=== PATIENT | male | born 1945 | race Caucasian/White ===

== ENCOUNTER 2022-08-08 14:53 | Outpatient (CLI) | payer OTHER, SELFPAY ==
--- NOTE | 2022-08-08 15:15 | USCV_ITS ---
Frederick Mantilla Age: 77 Gender: M : 1945 Exam Date: 08/08/2022 16:00 Ordering Phys: Parish Alston DO Technologist: Faith Maxwell Exam Location: [facility] [place] [facility] [place] Indication: left bruit Risk Factors: None Previous Vascular Surgery: None Right Brachial BP: / Left Brachial BP: / Right Left Velocity (cm/s) Spectral Plaque Velocity (cm/s) Spectral Plaque Syst/Diast Broadening Syst/Diast Broadening 146.00/20.20 Prox CCA 102.50/ 15.40 76.20/ 13.10 Mid CCA 82.70 / 12.10 61.40/ 10.10 Misael Distal CCA 66.80 / 14.00 Misael 57.50/ 11.70 Prox ICA 46.50 / 11.60 Misael 53.60/ 17.10 Mid ICA 38.30 / 11.20 55.90/ 19.40 Distal ICA 59.20 / 17.30 133.60 ECA 76.10 0.39 ICA/CCA 0.58 Antegrade Vertebral Antegrade 44.30/ 14.00 cm/s 37.50/ 10.90 cm/s Tri Subclavian Tri 101.9 131.5 0 0 FINDINGS Mild to moderate plaques at the bifurcations and proximal internal carotid arteries bilaterally Intimal thickening in the common carotid arteries bilaterally Antegrade flow in the vertebral arteries bilaterally Normal Doppler flow velocities in the external carotid and subclavian arteries bilaterally CONCLUSIONS Mild to moderate plaques at the bifurcations and proximal internal carotid arteries bilaterally with Doppler features suggesting less than 50% stenosis. No significant stenosis in the external carotid, vertebral and subclavian arteries, based on the above findings Compared to the study from 07/25/2019, there seems to be more plaque buildup at the bifurcations bilaterally Dr Denis Joy MD [facility] (Electronically Signed) Final Date: 09 August 2022 08:47 S
--- NOTE | 2022-08-08 16:00 | USCV_ITS ---
Frederick Mantilla Age: 77 Gender: M : 1945 Exam Date: 08/08/2022 15:31 Ordering Phys: Parish Alston DO Technologist: Faith Maxwell Exam Location: [facility] – [place] Indication: murmur BP: 138 / 70 HR: 83 Rhythm: Sinus Technical Quality: Good MEASUREMENTS (Male / Female) Normal Values 2D ECHO LV Diastolic Diameter PLAX 3.4 cm 4.2 - 5.9 / 3.9 - 5.3 cm LV Systolic Diameter PLAX 0.8 cm IVS Diastolic Thickness 1.3 cm 0.6 - 1.0 / 0.6 - 0.9 cm IVS Systolic Thickness 1.9 cm LVPW Diastolic Thickness 1.3 cm 0.6 - 1.0 / 0.6 - 0.9 cm LVPW Systolic Thickness 2.2 cm LVOT Diameter 2.0 cm LV Ejection Fraction 2D Teich 97.2 % LV Ejection Fraction MOD 2C 73.9 % LV Ejection Fraction 2C AL 72.8 % LA Diameter 3.3 cm LA Width 4.1 cm LA Height 6.6 cm RA Width 5.1 cm RA Height 4.2 cm Aorta at Sinotubular Diameter 2.7 cm IVC Diameter 1.8 cm DOPPLER AV Peak Velocity 382.0 cm/s LVOT Peak Velocity 124.0 cm/s AV Area Cont Eq vti 1.2 cm squared AV Area Cont Eq pk 1.0 cm squared MV Peak Velocity 154.0 cm/s MV Area PHT 2.3 cm squared Mitral E to A Ratio 0.8 MV E' Velocity 63.0 cm/s Mitral E to MV E' Ratio 10.6 Mitral E to LV E' Lateral Ratio 9.6 Mitral E to LV E' Septal Ratio 11.9 TR Peak Velocity 258.0 cm/s TR Peak Gradient 26.6 mmHg Right Atrial Pressure 3.0 mmHg Pulmonary Artery Systolic Pressu 29.6 mmHg RV Acceleration Time 0.1 s RV Ejection Time 0.3 s RV AcT/ET 0.3 FINDINGS Left Ventricle Normal left ventricular size and systolic function, EF 70 %. No regional wall motion abnormalities. Grade I/IV diastolic dysfunction (abnormal relaxation filling pattern), normal to mildly elevated filling pressures. Mild left ventricular hypertrophy. Right Ventricle The right ventricle is normal in size and function. Right Atrium The right atrium is normal in size. Left Atrium Mildly increased left atrial size. Mitral Valve Moderate mitral annular calcification. Trace mitral valve regurgitation. Aortic Valve Moderate aortic valve calcification. Trace to mild aortic valve regurgitation. Moderate aortic valve stenosis, mean gradient 27 mmHg, TYLER 1.2 cm squared. Peak velocity of 3.82 m/s with a peak gradient of 58 mmHg Tricuspid Valve Mild tricuspid valve regurgitation. Estimated pulmonary artery peak systolic pressure 30 mmHg Pulmonic Valve Pulmonic valve not well visualized. Pericardium Normal pericardium without effusion. Aorta Normal ascending aorta dimension. IVC Normal inferior vena cava. CONCLUSIONS Normal left ventricular size and systolic function, EF 70 %. No regional wall motion abnormalities. Grade I/IV diastolic dysfunction (abnormal relaxation filling pattern), normal to mildly elevated filling pressures. Mild left ventricular hypertrophy. Moderate aortic valve stenosis, mean gradient 27 mmHg, TYLER 1.2 cm squared. Peak velocity of 3.82 m/s with a peak gradient of 58 mmHg. Mild tricuspid valve regurgitation. Estimated pulmonary artery peak systolic pressure 30 mmHg Trace to mild aortic valve regurgitation. Mildly increased left atrial size. There is no pericardial effusion. There are no intracardiac masses. No similar previous studies are available for comparison Dr Denis Joy MD [facility] (Electronically Signed) Final Date: 09 August 2022 08:18 S
== END 2022-08-08 14:54 | disposition home or self-care (01) ==
LOC: RAD 14:56
PROVIDERS: Family Provider Emergency Medicine Emergency Medical Services; Visit Provider Emergency Medicine Emergency Medical Services
DX: R01.1 Cardiac murmur, unspecified (principal); I35.0 Nonrheumatic aortic (valve) stenosis
CPT/HCPCS: 93306; 93880

== ENCOUNTER 2023-07-24 08:19 | Outpatient (CLI) | payer OTHER, SELFPAY ==
--- NOTE | 2023-07-24 08:31 | CT_ITS ---
WS: [id number] CT ABDOMEN PELVIS TECHNIQUE: Noncontrast CT of the abdomen and pelvis with coronal and sagittal reformatted images. CLINICAL INFORMATION: ABDOMINAL BRUIT COMPARISON: None. DLP: 610.[address] scans at [facility] use at least one of these dose optimization techniques: automated e xposure control; mA and/or kV adjustment per patient size (includes targeted exams where dose is matc hed to clinical indication); or iterative reconstruction. FINDINGS: Chronic elevation RIGHT hemidiaphragm with atelectasis RIGHT lower lobe. LEFT lung base is well aerated. Moderate aortic vascular calcification. Dense calcification at the celiac and SMA origi ns. Dense calcification of the renal artery origins bilaterally. LEFT unilateral spondylolysis. No significant anterolisthesis. Noncontrast liver is normal. Normal noncontrast spleen. Normal GE junction. Fatty atrophy of the panc reas. Splenic artery calcification. Gallbladder is contracted. Adrenal glands are normal. No hydronep hrosis in either kidney. Mild bladder wall thickening can be seen with chronic cystitis or bladder ou tlet obstruction. Mild prominence of the prostate measuring 3.3 cm with calcification. Low-attenuatio n lesion within the head of the pancreas measuring 1.9 x 2.2 cm. Small fat-containing umbilical hernia. Sigmoid diverticulosis. No evidence of acute diverticulitis. IMPRESSION: 1. Moderate aortic calcification. No abdominal aortic aneurysm. 2. Sigmoid diverticulosis. No evidence of acute diverticulitis. 3. Low-attenuation cystic lesion in the head of the pancreas measuring 1.9 x 2.2 cm recommend furthe r evaluation with contrast-enhanced CT abdomen/pelvis with pancreatic protocol. 4. No hydronephrosis in either kidney. 5. Small esophageal hernia. 6. Chronic elevation RIGHT hemidiaphragm with atelectasis RIGHT lower lobe. 7. Mild bladder wall thickening. Mild prominence of the prostate. Recommend correlation PSA. 8. Small fat-containing umbilical hernia. 9. LEFT L5-S1 unilateral spondylolysis.
== END 2023-07-24 08:20 | disposition home or self-care (01) ==
LOC: RAD 08:20
PROVIDERS: PCP Emergency Medicine Emergency Medical Services; Visit Provider Emergency Medicine Emergency Medical Services
DX: R09.89 Other specified symptoms and signs involving the circulatory and respiratory systems (principal); I70.0 Atherosclerosis of aorta; K57.30 Diverticulosis of large intestine without perforation or abscess without bleeding; K44.9 Diaphragmatic hernia without obstruction or gangrene; K42.9 Umbilical hernia without obstruction or gangrene; M47.897 Other spondylosis, lumbosacral region
CPT/HCPCS: 74176